=== PATIENT | male | born 1970 | race Caucasian/White ===

== ENCOUNTER 2024-09-29 00:49 | Emergency (ER) | payer BC ==
[2024-09-29 01:38] LABS: Specific Gravity 1.008 (1.005-1.030); Sqamous Epithelial None Seen /HPF (None Seen); Urine Bacteria None Seen /HPF (<20); Urine Bilirubin NEGATIVE (Negative); Urine Blood Negative (Negative); Urine Clarity Clear (Clear); Urine Color Colorless (Yellow); Urine Culture Reflex Order NOT NEEDED; Urine Glucose NEGATIVE (Negative); Urine Ketones NEGATIVE (Negative); Urine Micro Reflex YN NO BILL MICROSCOPIC; Urine Mucus Slight /HPF (None Seen); Urine Nitrite NEGATIVE (Negative); Urine Protein NEGATIVE (Negative); Urine RBC None Seen /HPF (None Seen); Urine Urobilinogen Normal (Normal); Urine WBC <5 /HPF (<5); Urine pH 6.5 (5.0-7.0)
[2024-09-29 01:38] LABS: Absolute Basophils 0.1 K/uL (0-0.5); Absolute Eosinophils 0.1 K/uL (0-0.5); Absolute Lymphocytes (CBC) 3.9 K/uL (0.7-4.9); Absolute Neutrophil 5.6 K/uL (1.8-8.0); Basophils % 1.1 % (0-1.3); Eosinophils % 1.4 % (0-4.4); Hematocrit 40.1 % (39.6-49.0); Hemoglobin 13.7 g/dL (13.6-17.9); Lymphocytes % 36.3 % (15.3-44.8); MCH 31.6 pg (27.0-35.0); MCHC 34.3 g/dL (32.0-36.0); MCV 92.4 fL (80-100); MPV 8.7 fL (7.6-11.3); Monocytes % 9.1 % (3.3-12.3); Neutrophils % 52.1 % (41.7-73.7); Platelets 341 thou/uL (152-406); RBC Red Blood Cell Count 4.34 M/uL (4.33-5.43)
[2024-09-29 01:43] LABS: Anion Gap 10.3 mEq/L (5.0-15.0); Potassium 3.3 mEq/L (3.5-5.1)
[2024-09-29 01:54] LABS: ALT/SGPT 25 U/L (16-61); AST/SGOT 16 U/L (15-37); Albumin/Globulin Ratio 1.1 (1.1-1.8); Alkaline Phosphatase 66 U/L (45-117); Bilirubin Total 0.5 mg/dL (0.2-1.0); Globulin 3.7 g/dL (2.3-3.5); Protein, Total 7.7 g/dL (6.4-8.2)
[2024-09-29 02:13] LABS: Bilirubin Direct < 0.2 mg/dL (0-0.2); Bilirubin Indirect, Calculated 0.3 mg/dL (0.2-0.8)
[2024-09-29 02:15] LABS: Barbiturates NEGATIVE (NEGATIVE); Benzodiazepines NEGATIVE (NEGATIVE); Cocaine NEGATIVE (NEGATIVE); METHAMPHETAM NEGATIVE (NEGATIVE); Methadone NEGATIVE (NEGATIVE); Opiates NEGATIVE (NEGATIVE); Phencyclidine NEGATIVE (NEGATIVE); THC Cannibis NEGATIVE (NEGATIVE)
--- NOTE | 2024-09-29 02:22 | EDPHYS ---
Physician Documentation [facility] Name: Martin José Age: 54 yrs Sex: Male : 1970 Arrival Date: 09/29/2024 Time: 00:49 Bed 16 Private MD: ED Physician Taqueria Jenkins HPI: 09/29 01:07 This 54 yrs old Male presents to ER via Ambulatory with complaints of ec2 intermittent confusion. 01:07 Patient arrives today d/t concern for intermittent confusion for the past month. ec2 reports that he has been having intermittent confusion and forgetfulness for the past month. Patient reports no falls injury or trauma. Patient reports no fevers or chills, no nausea or vomiting. Patient reports that he was told he had bad kidneys and was concerned about his kidneys. Denies any urinary complaints. Denies any diarrheal symptoms, denies abdominal pain, denies chest pain or shortness of breath.. Historical: - Allergies: 01:03 No Known Allergies; cp4 - Immunization history:: Adult Immunizations up to date. - Infectious Disease History:: Denies. - Social history:: Smoking status: Patient denies any tobacco usage or history of. ROS: 01:09 Constitutional: as per hpi ec2 Exam: 01:09 Constitutional: GEN: NAD Head: atraumatic Eyes: EOMI Ears: External ears are ec2 normal. CV: regular rate LUNGS: no respiratory distress ABD: non-distended SKIN: no evidence of rashes MSK: no evidence of trauma. Neuro: Cranial nerves II through XII intact, strength intact all 4 extremities. Vital Signs: 01:02 BP 157 / 83; Pulse 84; Resp 18; Temp 98.4; Pulse Ox 99% ; Weight 106.59 kg; Height 6 cp4 ft. 3 in. ; Pain 0/10; 02:03 BP 111 / 85; Pulse 87; Resp 18; Pulse Ox 97% ; cp4 01:02 Body Mass Index 29.37 (106.59 kg, 190.5 cm) cp4 01:02 Pain Scale: Adult cp4 MDM: 00:54 Medical Screening Exam initiated ec2 01:09 Data reviewed: vital signs, nurses notes. ED course: Patient arrives today for ec2 intermittent confusion ongoing for 1+ month. Examination is revealing for intact neuroexam. Will obtain lab work, CT scan of the head. DDx considered includes processes such as intracranial mass, electrolyte disturbances, anemia, early onset dementia. 01:55 ED course: Metabolic profile shows slight hypokalemia, CBC reassuring, urine is ec2 noninfectious appearing.. 02:22 ED course: Lab work is nonactionable, CT scan of the head is negative for acute ec2 intracranial pathology. Will discharge home and follow-up with PCP.. 02:53 ED course: Patient specifically concerned about kidney function, lab work does not ec2 indicate any significant kidney abnormality. Urine is noninfectious appearing with no markers of kidney dysfunction. Patient is not have any indication to obtain advanced imaging of the kidneys such as ultrasonography or CT imaging. Patient will follow-up outpatient expectantly with primary care.. 09/29 01:01 Order name: CBC with Diff; Complete Time: 01:54 ec2 09/29 01:01 Order name: BMP; Complete Time: 01:54 ec2 09/29 01:01 Order name: UAM; Complete Time: :54 ec2 09/29 01:01 Order name: UDS; Complete Time: 02:17 ec2 09/29 01:07 Order name: LFT's; Complete Time: 02:17 ec2 09/29 01:07 Order name: CT Head Brain wo Cont ec2 09/29 01:01 Order name: IV; Complete Time: 01:16 ec2 Administered Medications: No medications were administered Disposition Summary: 09/29/24 02:22 Discharge Ordered Notes: Location: Home ec2 Condition: Stable ec2 Diagnosis - Forgetfulness ec2 Followup: ec2 - With: Private Physician - When: - Reason: Re-evaluation by your physician Discharge Instructions: - Discharge Summary Sheet ec2 - Confusion ec2 Forms: - Medication Reconciliation Form ec2 - Antibiotic Education ec2 - Prescription Opioid Use ec2 - Patient Portal Instructions ec2 - Leadership Thank You Letter ec2 Signatures: Dispatcher [employer] EDTaqueria Wen MD MD ec2 Laila Valdivia 4
--- NOTE | 2024-09-29 02:22 | ER ---
Nurse's Notes [facility] Name: Martin José Age: 54 yrs Sex: Male : 1970 Arrival Date: 09/29/2024 Time: 00:49 Bed 16 Private MD: Diagnosis: Forgetfulness Presentation: 09/29 01:02 Chief complaint: Patient states: "I am losing my mind and I googled my symptoms and it cp4 says I have bad kidneys and need dialysis.". Coronavirus screen: Client denies travel out of the [place] in the last 14 days. At this time, the client does not indicate any symptoms associated with coronavirus-19. Ebola Screen: Patient negative for fever greater than or equal to 101.5 degrees Fahrenheit, and additional compatible Ebola Virus Disease symptoms Patient denies exposure to infectious person. Patient denies travel to an Ebola-affected area in the 21 days before illness onset. No symptoms or risks identified at this time. Initial Sepsis Screen: Does the patient meet any 2 criteria? No. Patient's initial sepsis screen is negative. Does the patient have a suspected source of infection? No. Patient's initial sepsis screen is negative. Risk Assessment: Do you want to hurt yourself or someone else? Patient reports no desire to harm self or others. Onset of symptoms is unknown. 01:02 Method Of Arrival: Ambulatory cp4 01:02 Acuity: ESTRADA 3 cp4 Triage Assessment: 01:03 General: Appears in no apparent distress. comfortable, Behavior is calm, cooperative, cp4 appropriate for age. Pain: Denies pain. EENT: No signs and/or symptoms were reported regarding the EENT system. Neuro: Level of Consciousness is awake, alert, obeys commands, Oriented to person, place, time, situation. Cardiovascular: Patient's skin is warm and dry. Respiratory: Airway is patent Respiratory effort is even, unlabored. GI: No signs and/or symptoms were reported involving the gastrointestinal system. : No signs and/or symptoms were reported regarding the genitourinary system. Derm: No signs and/or symptoms reported regarding the dermatologic system. Musculoskeletal: No signs and/or symptoms reported regarding the musculoskeletal system. Historical: - Allergies: 01:03 No Known Allergies; cp4 - Immunization history:: Adult Immunizations up to date. - Infectious Disease History:: Denies. - Social history:: Smoking status: Patient denies any tobacco usage or history of. Screenin:04 [facility] ED Fall Risk Assessment (Adult) History of falling in the last 3 months, cp4 including since admission No falls in past 3 months (0 pts) Confusion or Disorientation No (0 pts) Intoxicated or Sedated No (0 pts) Impaired Gait No (0 pts) Mobility Assist Device Used No (0 pt) Altered Elimination No (0 pt) Score/Fall Risk Level 0 - 2 = Low Risk Oriented to surroundings, Maintained a safe environment, Assessed \\T\\ reinforced patient's understanding of fall precautions, Hourly rounding (assess needs \\T\\ fall precautionary measures) done. Abuse screen: Denies threats or abuse. Nutritional screening: No deficits noted. Tuberculosis screening: No symptoms or risk factors identified. Assessment: 01:04 Reassessment: No changes from previously documented assessment. cp4 Vital Signs: 01:02 BP 157 / 83; Pulse 84; Resp 18; Temp 98.4; Pulse Ox 99% ; Weight 106.59 kg; Height 6 cp4 ft. 3 in. ; Pain 0/10; 02:03 BP 111 / 85; Pulse 87; Resp 18; Pulse Ox 97% ; cp4 01:02 Body Mass Index 29.37 (106.59 kg, 190.5 cm) cp4 01:02 Pain Scale: Adult cp4 ED Course: 00:52 Patient arrived in ED. [id number] 00:53 Taqueria Jenkins MD is Attending Physician. ec2 00:54 Laila Valdivia is Primary Nurse. cp4 01:03 Triage completed. cp4 01:03 Arm band placed on left wrist. Patient placed in waiting room. cp4 01:04 Bed in low position. Call light in reach. Side rails up X 1. cp4 01:04 No provider procedures requiring assistance completed. cp4 01:17 Inserted saline lock: 20 gauge in left antecubital area, using aseptic technique. Blood cp4 collected. Flushed with 10 mL NS. 01:28 CT Head Brain wo Cont In Process Unspecified. EDMS 02:49 Provided Education on: confusion. cp4 02:49 intact, bleeding controlled, No redness/swelling at site. Pressure dressing applied. cp4 Administered Medications: No medications were administered Medication: 01:04 VIS not applicable for this client. cp4 Outcome: 02:22 Discharge ordered by . ec2 02:49 Discharged to home ambulatory, cp4 02:49 Condition: stable 02:49 Discharge instructions given to patient, Instructed on discharge instructions, follow up and referral plans. Demonstrated understanding of instructions, follow-up care, :49 Patient left the ED. cp4 Signatures: Dispatcher [employer] [place] [email or web address] Taqueria Jenkins MD MD ec2 Laila Valdivia cp4
[2024-09-29 02:56] VITALS: TEMP 98.4
[2024-09-29 02:57] VITALS: BP 111/85; O2SAT 97
--- NOTE | 2024-09-29 06:10 | RAD REPORT ---
PROCEDURE: CT Head Without Intravenous Contrast CLINICAL INDICATION: The patient is 54 years old and is Male; Confused. TECHNIQUE: Axial computed tomography images of the head/brain without intravenous contrast. Sagittal and coron al reformatted images were created and reviewed. This CT exam was performed using one or more of the following dose reduction techniques: automated exposure control, adjustment of the mA and/or kV according to patient size, and/or use of iterative reconstruction technique. COMPARISON: None. FINDINGS: BRAIN: No extra-axial fluid collection. No intracranial hemorrhage. No transtentorial herniation. N o focal steven-white matter differentiation abnormality. MIDLINE SHIFT: None. VENTRICLES: Unremarkable No ventriculomegaly. BONES/JOINTS: No fracture of the calvarium or visualized facial bones. SOFT TISSUES: Unremarkable SINUSES: No masses, bony erosion or evidence of acute sinusitis. MASTOID AIR CELLS: Unremarkable as visualized. No mastoid effusion. NASAL CAVITY/SEPTUM: Mild leftward anterior nasal septal deviation. IMPRESSION: No acute intracranial abnormality. Electronically signed by: Karl Taylor MD 09/29/2024 02:18 AM CDT Due to temporary technical issues with the PACS/[employer] reporting system, reports are being itaol d by the in-house radiologist without review as a courtesy to ensure prompt reporting the interpreting radiologist is fully responsible for the content of the report. Transcribed Date/Time: 09/29/2024 6:09 AM
== END 2024-09-29 02:49 | disposition home or self-care (01) ==
LOC: ER 00:49
DX: R41.9 Unspecified symptoms and signs involving cognitive functions and awareness (principal); R41.0 Disorientation, unspecified
CPT/HCPCS: 36415; 70450; 80048; 80076; 80307; 81001; 85025; 99283